=== PATIENT | female | born 1975 | race Caucasian/White ===

== ENCOUNTER 2018-04-24 17:55 | Inpatient (IN) | payer MEDICAID ==
[~2018-04-24] VITALS: Ht 167.6 cm; Wt 46.7 kg
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
[2018-04-24] MEDS ORDERED: NEURONTIN 300300 MG PO (18:07)
[2018-04-24] MEDS ORDERED: OXYCODONE H5 MG/5 ML PO (18:08)
[2018-04-24 18:35] LABS: BASOPHILS 0.2 % (0-2); EOSINOPHILS 0.4 % (0-7); HEMATOCRIT 34.5 % (36.0-48.0); HEMOGLOBIN 11.7 g/dL (12-16); IMMATURE GRANULOCYTES 0.7 % (0-5); MCH 31.6 pg (26.0-34.0); MCHC 33.9 g/dL (31.0-37.0); MCV 93.2 fL (80.0-100.0); MEAN PLATELET VOLUME 10.2 fL (7.4-10.4); MONOCYTES 12.2 % (2-11); NEUTROPHILS 75.5 % (40-80); PLATELET COUNT 486 10x3/uL (130-400); RDW 12.1 % (11.5-14.5); WBC 16.5 10x3/uL (4.8-10.8)
[2018-04-24 18:43] LABS: APPEARANCE HAZY (CLEAR); BILIRUBIN NEGATIVE (NEGATIVE); COLOR AMBER (YELLOW); GLUCOSE NEGATIVE (NEGATIVE); KETONE NEGATIVE (NEGATIVE); NITRITE POSITIVE (NEGATIVE); PROTEIN 1+ mg/dL (NEGATIVE); UROBILINOGEN NORMAL (NORMAL)
[2018-04-24 18:45] LABS: BACTERIA MANY /hpf (NONE SEEN); WHITE CELLS - URINE 0-5 /hpf (0-5)
[2018-04-24 18:56] LABS: ANION GAP 12.6 mmol/L (8-16); BILIRUBIN - TOTAL 0.69 mg/dL (0.2-1.3); CALCIUM 9.7 mg/dL (8.5-10.1); CARBON DIOXIDE 30.8 mmol/L (21.0-32.0); CREATININE - SERUM 0.9 mg/dL (0.6-1.3); POTASSIUM - SERUM 3.4 mmol/L (3.5-5.1); PROTEIN - SERUM 8.9 g/dL (6.4-8.2)
[2018-04-25] VITALS (7 sets, daily range): BP systolic 100–122; BP diastolic 62–86; Ht 167.6 cm; Wt 46.7 kg
[2018-04-25] MEDS ORDERED: IBUPROFEN100 MG/5 M PO (00:14)
[2018-04-25] MEDS ORDERED: CLEOCIN PA75 MG/5 ML PO (00:15)
[2018-04-25 09:39] LABS: WBC 21.8 10x3/uL (4.8-10.8)
[2018-04-25 09:40] LABS: HEMATOCRIT 29.4 % (36.0-48.0); HEMOGLOBIN 9.9 g/dL (12-16); MCHC 33.7 g/dL (31.0-37.0); MCV 92.2 fL (80.0-100.0); PLATELET COUNT 442 10x3/uL (130-400); RBC 3.19 10x6/uL (4.00-5.40); RDW 12.3 % (11.5-14.5)
[2018-04-25 09:49] LABS: ALBUMIN 2.4 g/dL (3.4-5.0); ALKALINE PHOSPHATASE 210 U/L (46-116); ALT (SGPT) 111 U/L (10-68); BILIRUBIN - TOTAL 1.03 mg/dL (0.2-1.3); CALC OSMOLALITY 272 mosm/kg (275-300); CALCIUM 8.8 mg/dL (8.5-10.1); CARBON DIOXIDE 25.3 mmol/L (21.0-32.0); CHLORIDE - SERUM 100 mmol/L (98-107); CREATININE - SERUM 0.6 mg/dL (0.6-1.3); GLUCOSE 130 mg/dL (74-106); POTASSIUM - SERUM 3.5 mmol/L (3.5-5.1); PROTEIN - SERUM 6.7 g/dL (6.4-8.2); SODIUM 137 mmol/L (136-145); UREA NITROGEN 4 mg/dL (7-18); eGFR NON AFRICAN AMERICAN > 90 mL/min (90-120)
[2018-04-25 09:57] LABS: EOSINOPHILS 1 % (0-7); LYMPHOCYTES 9 % (15-50); MONOCYTES 3 % (2-11); NEUTROPHILS 84 % (40-80)
[2018-04-25 09:58] LABS: PLATELET ESTIMATE INCREASED
[2018-04-26] VITALS: BP 118/74
[2018-04-26 04:00] VITALS: BP 101/67
[2018-04-26 05:35] LABS: BASOPHILS 0.2 % (0-2); EOSINOPHILS 0.3 % (0-7); HEMOGLOBIN 9.8 g/dL (12-16); IMMATURE GRANULOCYTES 1.2 % (0-5); LYMPHOCYTES 8.7 % (15-50); MCH 30.6 pg (26.0-34.0); MCHC 32.7 g/dL (31.0-37.0); MCV 93.8 fL (80.0-100.0); MEAN PLATELET VOLUME 10.5 fL (7.4-10.4); MONOCYTES 10.2 % (2-11); NEUTROPHILS 79.4 % (40-80); PLATELET COUNT 452 10x3/uL (130-400); RDW 12.5 % (11.5-14.5); WBC 23.4 10x3/uL (4.8-10.8)
[2018-04-26 06:14] LABS: ALBUMIN 2.3 g/dL (3.4-5.0); ALKALINE PHOSPHATASE 251 U/L (46-116); ALT (SGPT) 97 U/L (10-68); BILIRUBIN - TOTAL 0.85 mg/dL (0.2-1.3); CALC OSMOLALITY 268 mosm/kg (275-300); CALCIUM 8.7 mg/dL (8.5-10.1); CARBON DIOXIDE 29.5 mmol/L (21.0-32.0); CHLORIDE - SERUM 100 mmol/L (98-107); CREATININE - SERUM 0.7 mg/dL (0.6-1.3); GLUCOSE 102 mg/dL (74-106); POTASSIUM - SERUM 3.6 mmol/L (3.5-5.1); PROTEIN - SERUM 7.2 g/dL (6.4-8.2); SODIUM 136 mmol/L (136-145); UREA NITROGEN 4 mg/dL (7-18); eGFR NON AFRICAN AMERICAN > 90 mL/min (90-120)
[2018-04-26 08:30] VITALS: BP 102/60
[2018-04-26 14:02] VITALS: BP 104/56
[2018-04-26 20:22] VITALS: BP 115/75
[2018-04-27 01:06] VITALS: BP 129/88
[2018-04-27 05:17] VITALS: BP 116/72
[2018-04-27 05:33] LABS: BASOPHILS 0.1 % (0-2); EOSINOPHILS 0.4 % (0-7); HEMATOCRIT 29.7 % (36.0-48.0); HEMOGLOBIN 9.9 g/dL (12-16); IMMATURE GRANULOCYTES 2.1 % (0-5); LYMPHOCYTES 10.1 % (15-50); MCH 31.1 pg (26.0-34.0); MCHC 33.3 g/dL (31.0-37.0); MCV 93.4 fL (80.0-100.0); MEAN PLATELET VOLUME 10.2 fL (7.4-10.4); MONOCYTES 11.9 % (2-11); NEUTROPHILS 75.4 % (40-80); PLATELET COUNT 547 10x3/uL (130-400); RBC 3.18 10x6/uL (4.00-5.40); RDW 12.5 % (11.5-14.5); WBC 20.1 10x3/uL (4.8-10.8)
[2018-04-27 05:52] LABS: ALBUMIN 2.2 g/dL (3.4-5.0); ALKALINE PHOSPHATASE 228 U/L (46-116); BILIRUBIN - TOTAL 0.68 mg/dL (0.2-1.3); CALCIUM 8.5 mg/dL (8.5-10.1); CARBON DIOXIDE 29.1 mmol/L (21.0-32.0); CHLORIDE - SERUM 98 mmol/L (98-107); CREATININE - SERUM 0.7 mg/dL (0.6-1.3); GLUCOSE 102 mg/dL (74-106); POTASSIUM - SERUM 3.4 mmol/L (3.5-5.1); PROTEIN - SERUM 7.3 g/dL (6.4-8.2); SODIUM 136 mmol/L (136-145); eGFR NON AFRICAN AMERICAN > 90 mL/min (90-120)
[2018-04-27 05:55] LABS: ALT (SGPT) 67 U/L (10-68); CALC OSMOLALITY 267 mosm/kg (275-300); UREA NITROGEN 2 mg/dL (7-18)
[2018-04-27 08:16] VITALS: BP 112/71
[2018-04-27 12:33] VITALS: BP 120/68
[2018-04-27 16:32] VITALS: BP 112/76
[2018-04-27 20:59] VITALS: BP 122/82
[2018-04-28 04:33] LABS: BASOPHILS 0.1 % (0-2); EOSINOPHILS 0.2 % (0-7); HEMATOCRIT 29.5 % (36.0-48.0); HEMOGLOBIN 9.9 g/dL (12-16); IMMATURE GRANULOCYTES 2.2 % (0-5); LYMPHOCYTES 8.9 % (15-50); MCHC 33.6 g/dL (31.0-37.0); MCV 92.5 fL (80.0-100.0); MEAN PLATELET VOLUME 9.8 fL (7.4-10.4); MONOCYTES 8.7 % (2-11); NEUTROPHILS 79.9 % (40-80); PLATELET COUNT 610 10x3/uL (130-400); RBC 3.19 10x6/uL (4.00-5.40); RDW 12.6 % (11.5-14.5); WBC 18.3 10x3/uL (4.8-10.8)
[2018-04-28 05:04] LABS: ALKALINE PHOSPHATASE 224 U/L (46-116); BILIRUBIN - TOTAL 0.56 mg/dL (0.2-1.3); CALCIUM 8.6 mg/dL (8.5-10.1); CARBON DIOXIDE 26.5 mmol/L (21.0-32.0); CHLORIDE - SERUM 99 mmol/L (98-107); CREATININE - SERUM 0.7 mg/dL (0.6-1.3); GLUCOSE 122 mg/dL (74-106); POTASSIUM - SERUM 3.4 mmol/L (3.5-5.1); PRE-ALBUMIN 4.4 mg/dL (18.0-35.7); PROTEIN - SERUM 7.2 g/dL (6.4-8.2); SODIUM 135 mmol/L (136-145); eGFR NON AFRICAN AMERICAN > 90 mL/min (90-120)
[2018-04-28 05:24] LABS: ALT (SGPT) 50 U/L (10-68); CALC OSMOLALITY 267 mosm/kg (275-300); UREA NITROGEN 5 mg/dL (7-18)
[2018-04-28 05:31] VITALS: BP 128/72
[2018-04-28 08:08] VITALS: BP 109/72
[2018-04-28 12:04] VITALS: BP 108/66
[2018-04-28 20:06] VITALS: BP 118/61
[2018-04-29 05:49] VITALS: BP 118/74
[2018-04-29 06:13] LABS: BASOPHILS 0.3 % (0-2); EOSINOPHILS 0.6 % (0-7); HEMATOCRIT 31.4 % (36.0-48.0); HEMOGLOBIN 10.2 g/dL (12-16); IMMATURE GRANULOCYTES 3.4 % (0-5); MCH 30.5 pg (26.0-34.0); MCHC 32.5 g/dL (31.0-37.0); MEAN PLATELET VOLUME 9.9 fL (7.4-10.4); NEUTROPHILS 77.7 % (40-80); PLATELET COUNT 709 10x3/uL (130-400); RBC 3.34 10x6/uL (4.00-5.40); RDW 12.8 % (11.5-14.5); WBC 22.9 10x3/uL (4.8-10.8)
[2018-04-29 06:24] LABS: ALBUMIN 2.1 g/dL (3.4-5.0); ALKALINE PHOSPHATASE 225 U/L (46-116); ALT (SGPT) 40 U/L (10-68); BILIRUBIN - TOTAL 0.32 mg/dL (0.2-1.3); CALCIUM 8.9 mg/dL (8.5-10.1); CHLORIDE - SERUM 97 mmol/L (98-107); CREATININE - SERUM 0.6 mg/dL (0.6-1.3); GLUCOSE 101 mg/dL (74-106); MAGNESIUM - SERUM 2.2 mg/dL (1.8-2.4); POTASSIUM - SERUM 3.7 mmol/L (3.5-5.1); PROTEIN - SERUM 7.6 g/dL (6.4-8.2); SODIUM 134 mmol/L (136-145); eGFR NON AFRICAN AMERICAN > 90 mL/min (90-120)
[2018-04-29 06:28] LABS: CALC OSMOLALITY 265 mosm/kg (275-300); UREA NITROGEN 7 mg/dL (7-18)
[2018-04-29 08:20] VITALS: BP 110/72
[2018-04-29 12:38] VITALS: BP 100/56
[2018-04-29] MEDS ORDERED: MIRALAX17 GM PO (14:10)
[2018-04-29] MEDS ORDERED: LEVAQUIN250 MG PO (14:11)
[2018-04-29] MEDS ORDERED: OXYCODONE-APAP1 TAB PO (14:11)
== END 2018-04-29 15:56 | disposition home or self-care (01) | DRG 949 ==
LOC: OBSVTIME → D.ER 17:55 → OBSVTIME 22:14 → D.MS 22:14 → D.ER 22:33 → OBSVTIME 22:34 → D.MS 04-25 13:15
PROVIDERS: Emergency Medicine
DX: S36.029D Unspecified contusion of spleen, subsequent encounter (principal); N39.0 Urinary tract infection, site not specified; J90 Pleural effusion, not elsewhere classified; F12.90 Cannabis use, unspecified, uncomplicated; E87.6 Hypokalemia; V49.9XXD Car occupant (driver) (passenger) injured in unspecified traffic accident, subsequent encounter; S02.609D Fracture of mandible, unspecified, subsequent encounter for fracture with routine healing